=== PATIENT | female | born 1995 | race African-American/Black ===

== ENCOUNTER 2024-10-01 16:45 | Inpatient (IN) | payer MEDICAID, OTHER ==
[~2024-10-01] VITALS: Ht 177.8 cm; Wt 68.2 kg
[2024-10-01 17:00] VITALS: PULSE 80; RESP 15; O2SAT 97
[2024-10-01 19:38] LABS: Chloride 107 mmol/L (98-107); Potassium 4.1 mmol/L (3.5-5.1); Sodium 139 mmol/L (136-145)
[2024-10-01 19:39] LABS: Anion Gap 13 (5-15)
[2024-10-01 19:44] LABS: BUN/Creatinine Ratio 10.4 (10.0-20.0); Glucose 89 mg/dL (74-106)
[2024-10-01 19:51] LABS: Blood Urea Nitrogen 8 mg/dL (9-23); Carbon Dioxide 19 mmol/L (20-31)
[2024-10-01 19:53] LABS: Basophils # (auto) 0 10 ^3/uL (0-0.2); Basophils % (auto) 0.4 % (0.0-2.0); Eosinophils # (auto) 0 10 ^3/uL (0-0.8); Eosinophils % (auto) 0.1 % (0.0-7.0); Hematocrit 36.8 % (36.0-46.0); Hemoglobin 12.3 g/dL (12.2-16.2); Lymphocytes # (auto) 0.7 10 ^3/uL (0.4-5.4); Lymphocytes % (auto) 7.9 % (10.0-50.0); Mean Corpuscular Hemoglobin 33.2 pg (28.0-32.0); Mean Corpuscular Hgb Conc. 33.4 g/dL (32.0-36.0); Mean Corpuscular Volume 99.4 fL (80.0-100.0); Monocytes # (auto) 0.5 10 ^3/uL (0-1.3); Monocytes % (auto) 6.2 % (0.0-12.0); Neutrophils # (auto) 7.3 10 ^3/uL (1.6-8.6); Neutrophils % (auto) 85.4 % (37.0-80.0); Platelet Count (auto) 274 10^3/uL (140-450); Red Cell Distribution Width 13.4 % (11.8-14.3); White Blood Cell 8.5 10^3/uL (4.4-10.8)
--- NOTE | 2024-10-01 20:07 | ED.PDOC ---
History of Present Illness HPI Comments 29 year old female came to ER due to hypotension. Patient had a witnessed syncopal attack at home followed by a seizure like episode. No history of seizures. 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 Allergies: Coded Allergies: NO KNOWN ALLERGIES (Unverified , 10/01/24) Information Source: Patient, Emergency Med Personnel Mode of Arrival: EMS Severity: Moderate Timing: Minutes Duration: Minutes Prehospital treatment: None Past Medical History PAST MEDICAL HISTORY: Denies Surgical History: Denies all surgeries [employer] SECRETARY History: Denies all [employer]RO[employer] SECRETARY Hx Family History Family History: Reviewed,noncontributory to illness Social History Smoker: Non-Smoker Alcohol: Denies ETOH Use Drugs: Denies Drug Use Lives In: Home Constitutional: denies: chills, diaphoresis, fatigue, fever, malaise, sweats, weakness, others EENTM: denies: blurred vision, double vision, ear bleeding, ear discharge, ear drainage, ear pain, ear ringing, eye pain, eye redness, hearing loss, mouth pain, mouth swelling, nasal discharge, nose bleeding, nose congestion, nose pain, photophobia, tearing, throat pain, throat swelling, voice changes, others Respiratory: denies: cough, hemoptysis, orthopnea, SOB at rest, shortness of breath, SOB with excertion, stridor, wheezing, others Cardiovascular: denies: chest pain, dizzy spells, diaphoresis, Dyspnea on exertion, edema, irregular heart beat, left arm pain, lightheadedness, palpitations, PND, syncope, others Gastrointestinal: denies: abdomen distended, abdominal pain, blood streaked bowels, constipated, diarrhea, dysphagia, difficulty swallowing, hematemesis, melena, nausea, poor appetite, poor fluid intake, rectal bleeding, rectal pain, vomiting, others Genitourinary: denies: abnormal vagina bleeding, burning, dyspareunia, dysuria, flank pain, frequency, hematuria, incontinence, pain, , vagina discharge, urgency, others Neurological: reports: dizziness, fainting, seizure; denies: headache, left sided numbness, left sided weakness, numbness, paresthesia, pre-existing deficit, right sided numbness, right sided weakness, speech problems, tingling, tremors, weakness, others Musculoskeletal: denies: back pain, gout, joint pain, joint swelling, muscle pain, muscle stiffness, neck pain, others Integumetry: denies: bruises, change in color, change in hair/nails, dryness, laceration, lesions, lumps, rash, wounds, others Allergic/Immunocompromised: denies: Difficulty Healing, Frequent Infections, Hives, Itching, others Hematologic/Lymphatic: denies: anemia, blood clots, easy bleeding, easy bruising, swollen glands, others Endocrine: denies: excessive hunger, excessive sweating, excessive thirst, excessive urination, flushing, intolerance to cold, intolerance to heat, unexplained weight gain, unexplained weight loss, others Psychiatric: denies: anxiety, bipolar disorder, depression, hopeless, panic disorder, schizophrenia, sleepless, suicidal, others Physical Exam General Appearance: No Apparent Distress, Normal HEENT: Normal ENT Inspection, Pharynx Normal, TMs Normal Neck: Full Range of Motion, Non-Tender, Normal, Normal Inspection Respiratory: Chest Non-Tender, Lungs Clear, No Accessory Muscle Use, No Respiratory Distress, Normal Breath Sounds Cardiovascular: No Edema, No JVD, No Murmur, No Gallop, Normal Peripheral Pulses, Regular Rate/Rhythm Breast Exam: Deferred Gastrointestinal: No Organomegaly, Non Tender, No Pulsatile Mass, Normal Bowel Sounds, Soft Genitalia: Deferred Pelvic: Deferred Rectal: Deferred Extremities: No calf tenderness, Normal capillary refill, Normal inspection, Normal range of motion, Non-tender, No pedal edema Musculoskeletal : Apperance: Normal Neurologic: Alert, jewel inserter II-XII nml as Tested, No Motor Deficits, Normal Affect, Normal Mood, No Sensory Deficits Cerebellar Function: Normal Reflexes: Normal Skin: Dry, Normal Color, Warm Lymphatic: No Adenopathy Was a procedure done? Was a procedure done?: No Differential Dx Considerations may include: anemia, electrolyte imbalance, syncope. seizure, hypotension X-Ray, Labs, Meds, VS Vital Signs Date Time Temp Pulse Resp B/P (MAP) Pulse Ox O2 Delivery O2 Flow Rate FiO2 10/01/24 23:01 104 13 100 Room Air* 0 21 10/01/24 23:00 98.4 98 18 119/68 (85) 100 98.4 10/01/24 20:00 98.2 99 26 120/82 (95) 98 98.2 10/01/24 18:30 85 17 103/69 (80) 96 10/01/24 17:00 80 15 97 Room Air* 0 21 10/01/24 17:00 97.9 80 15 95/59 (71) 97 97.9 10/01/24 16:45 98.1 84 20 76/45 (55) 97 Lab Test 10/01/24 19:32 10/01/24 18:48 10/01/24 18:30 Range/Units White Blood Count 8.5 4.4-10.8 10^3/uL Red Blood Count 3.70 L 4.0-5.20 10^6/uL Hemoglobin 12.3 12.2-16.2 g/dL Hematocrit 36.8 36.0-46.0 % Mean Corpuscular Volume 99.4 80.0-100.0 fL Mean Corpuscular Hemoglobin 33.2 H 28.0-32.0 pg Mean Corpuscular Hemoglobin Concent 33.4 32.0-36.0 g/dL Red Cell Distribution Width 13.4 11.8-14.3 % Platelet Count 274 140-450 10^3/uL Mean Platelet Volume 7.1 6.9-10.8 fL Neutrophils (%) (Auto) 85.4 H 37.0-80.0 % Lymphocytes (%) (Auto) 7.9 L 10.0-50.0 % Monocytes (%) (Auto) 6.2 0.0-12.0 % Eosinophils (%) (Auto) 0.1 0.0-7.0 % Basophils (%) (Auto) 0.4 0.0-2.0 % Neutrophils # (Auto) 7.3 1.6-8.6 10 ^3/uL Lymphocytes # (Auto) 0.7 0.4-5.4 10 ^3/uL Monocytes # (Auto) 0.5 0-1.3 10 ^3/uL Eosinophils # (Auto) 0 0-0.8 10 ^3/uL Basophils # (Auto) 0 0-0.2 10 ^3/uL Nucleated Red Blood Cells 0.0 % Sodium Level 139 136-145 mmol/L Potassium Level 4.1 3.5-5.1 mmol/L Chloride Level 107 98-107 mmol/L Carbon Dioxide Level 19 L 20-31 mmol/L Anion Gap 13 5-15 Blood Urea Nitrogen 8 L 9-23 mg/dL Creatinine 0.77 0.550-1.02 mg/dL Glomerular Filtration Rate Calc 107 >90 mL/min BUN/Creatinine Ratio 10.4 10.0-20.0 Serum Glucose 89 74-106 mg/dL Calcium Level 9.0 8.7-10.4 mg/dL Urine Color Yellow Yellow Urine Clarity Turbid H Clear Urine pH 6.0 5.0-9.0 Urine Specific [place] 1.022 1.001-1.035 Urine Protein 1+ H Negative Urine Ketones 1+ H Negative Urine Blood Trace H Negative /uL Urine Nitrite Negative Negative Urine Bilirubin Negative Negative Urine Urobilinogen Normal Negative mg/dL Urine Leukocyte Esterase Negative Negative /uL Urine RBC 2 0 - 4 /hpf Urine WBC 4 0 - 5 /hpf Urine Squamous Epithelial Cells Mod <5 /hpf Urine Bacteria Few H None Seen /hpf Urine Hyaline Casts Few 0 - 2 /lpf Urine Mucus Few None Seen Urine Glucose Normal Normal mg/dL Urine Test Negative Negative Current Medications Medications (Trade) Dose Ordered Sig/Conner Route Start Time Stop Time Status Last Admin Levetiracetam 200 ml @ 400 mls/hr ONCE ONCE IV 10/01/24 21:00 10/01/24 21:29 DC 10/01/24 21:15 Sodium Chloride 1,000 ml @ 1,000 mls/hr Q1H ONCE IV 10/01/24 21:00 10/01/24 21:59 DC 10/01/24 21:00 Lorazepam (Ativan Inj) 2 mg ONCE ONCE IM 10/01/24 21:45 10/01/24 21:46 DC 10/01/24 22:02 Time of 1ST Reevaluation: 20:04 Reevaluation 1ST: Unchanged Patient Education/Counseling: Diagnosis, Treatment Family Education/Counseling: No Family Present Departure 1 Departure Time of Disposition: 23:31 (Patient has new onset seizures. Then we will admit patient for further workup.) Impression: Primary Impression: Seizure Disposition: ADMITTED INPATIENT Admit to: Med Surg Condition: Serious Critical Care Note Critical Care Time?: Yes Critical care comment: Seizures Authorized and Performed by: Chyna Arteaga MD Total critical care time: Approximately 39 minutes Due to a high probability of clinically significant, life threatening deterioration, the patient required my highest level of preparedness to intervene emergently and I personally spent this critical care time directly and personally managing the patient. This critical care time included obtaining a history; examining the patient; pulse oximetry; ordering and review of studies; arranging urgent treatment with development of a management plan; evaluation of patient's response to treatment; frequent reassessment; and, discussions with other providers. This critical care time was performed to assess and manage the high probability of imminent, life-threatening deterioration that could result in multi-organ failure. It was exclusive of separately billable procedures and treating other patients and teaching time. Please see my other sections and the rest of the note for further information on patient assessment and treatment. Stability Stability form required: No Heart Score Heart Score: Heart Score Response (Comments) Value History N/A 0 EKG N/A 0 Age N/A 0 Risk Factors N/A 0 Troponin N/A 0 Total 0 I personally scribed for CHYNA ARTEAGA MD ([email or web address]) on 10/01/24 at 20:07. Electronically submitted by Lawrence Fuller ([facility]). CHYNA ARTEAGA MD Oct 01, 2024 20:07
[2024-10-01] MEDS: LORazepam 2MG/ML-1ML VIAL ONE (21:00)
[2024-10-01] MEDS: SODIUM CHLORIDE 0.9% 1,000 ML IV ONE (21:00)
[2024-10-01 21:13] LABS: Urine Bacteria FEW /hpf (None Seen); Urine Blood TRACE /uL (Negative); Urine Clarity Turbid (Clear); Urine Color Yellow (Yellow); Urine Hyaline Cast FEW /lpf (0 - 2); Urine Mucus FEW (None Seen); Urine Protein, UAD 1+ (Negative); Urine Specific Gravity 1.022 (1.001-1.035); Urine Squamous Epithelial Cell MOD /hpf (<5); Urine Urobilinogen Normal (Negative); Urine WBC 4 /hpf (0 - 5)
[2024-10-01] MEDS: levETIRAcetam 1000 mg/100ml 200 ML IV ONE (21:15)
[2024-10-01] MEDS: levETIRAcetam 1000 mg/100ml 100 ML IV ONE (21:32)
--- NOTE | 2024-10-01 21:35 | DVH ---
EXAM: XY CHEST XRAY 1 VIEW CLINICAL HISTORY: possible aspiration TECHNIQUE: Single AP view of the chest WID: COMPARISON: None FINDINGS: Lines and tubes: None Chest: The heart size and pulmonary vasculature is within normal limits. No pleural effusion or pneumothorax. Suggestion of mild patchy perihilar opacities. The osseous structures are grossly intact. IMPRESSION: Suggestion of mild patchy perihilar opacities which may be superimposed soft tissues, atelectasis, or pneumonia
--- NOTE | 2024-10-01 22:00 | DVH ---
EXAM: CT HEAD WITHOUT CONTRAST INDICATION: New onset seizure TECHNIQUE: CT of the head without intravenous contrast. Radiation Dose : 1. Head: CT Dose: CTDI volume is 61 mGy. Dose-length product is 1077 mGy*cm The dose indicators for CT are the volume Computed Tomography (CT) Dose Index (CTDIvol) and the Dose Length Product (DLP), and are measured in units of mGy and mGy-cm, respectively. These indicators are not patient dose, but values generated from the CT scanner acquisition factors. The report includes radiation exposure data for exposures received during this examination. COMPARISON: None FINDINGS: There is no evidence of acute intracranial hemorrhage, extra-axial collection, mass effect, midline s hift, herniation or hydrocephalus. The ventricles, sulci and cisterns are age appropriate. The sumner-white differentiation is intact. Patchy periventricular and subcortical white matter hypoattenuation is nonspecific but may be related to small vessel ischemic disease. The visualized paranasal sinuses and mastoid air cells are clear. The surrounding soft tissues and osseous structures are unremarkable. IMPRESSION: 1. No acute intracranial abnormality. Radiation optimization: All CT scans at this facility use at least one of these dose optimization ivet hniques: automated exposure control mA and/or kV adjustment per patient size (includes targeted exam s where dose is matched to clinical indication) or iterative reconstruction.
[2024-10-01] MEDS: LORazepam 2MG/ML-1ML VIAL IM ONE (22:02)
[2024-10-01 23:01] VITALS: PULSE 104; RESP 13; O2SAT 100
[2024-10-02] MEDS ORDERED: ACETAMINOPHEN 325 MG TAB PO PRN (00:30)
[2024-10-02] MEDS ORDERED: DOCUSATE SOD 100 MG CAP PO PRN (00:30)
[2024-10-02] MEDS: SODIUM CHLORIDE 0.9% 1,000 ML IV SCH (00:30)
[2024-10-02] MEDS ORDERED: HYDROcodone-ACET 5/325MG TAB PO PRN (00:30)
[2024-10-02] MEDS ORDERED: LORazepam 2MG/ML-1ML VIAL IV PRN (00:30)
[2024-10-02] MEDS ORDERED: ONDANSETRON HCL 4 MG/2 ML VIAL IV PRN (00:30)
[2024-10-02] MEDS: CEFEPIME 2GM/50ML NS 50 ML IV ONE (00:45)
--- NOTE | 2024-10-02 00:55 | DVHHP2 ---
History of Present Illness Reason for Visit: Seizure disorder History of Present Illness The patient is a 29-year-old female with past medical history of seizure presented to [facility] ED for evaluation of hypotension. Patient had a witnessed syncopal attack at home followed by a seizure like episode lasting for 45 seconds, reports history of seizures. Patient was noted to have blood sugar of 139, hypotensive at 76/45 mmHg trending up to 119/68, heart rate 98, temperature 98.4 F, O2 saturation 99% room air. Laboratory data shows WBC 8.5, platelets 274, sodium 139, potassium 4.1, BUN 8, creatinine 0.77, GFR 107, glucose 89. Head CT showed no acute intracranial abnormality. Chest x-ray sugges tion of mild patchy perihilar opacity which may be superimposed soft tissues, atelectasis, or pneumonia..Patient was started IV antibiotic regimen cefepime, please see medication orders section in the computer. On my assessment, patient denied chest pain, no headache, no dizziness, no shortness of breath, no nausea, no vomiting, no fever, no chills. Patient was admitted for further evaluation and medical management. Past Medical History Seizure Past Surgical History Denies all surgeries Family History Reviewed, noncontributory to the management of this case. Past Social History The patient lives at home, denies smoking, alcohol or illicit drugs abuse. Review of Systems Constitutional: No: Fever, Chills, Sweats, Weakness, Malaise, Other Eyes: No: Pain, Vision change, Conjunctivae inflammation, Eyelid inflammation, Other, Redness ENT: No: Ear pain, Ear discharge, Nose pain, Nose discharge, Nose congestion, Mouth pain, Mouth swelling, Throat pain, Throat swelling, Other Respiratory: No: Cough, Dry, Shortness of breath, SOB with excertion, Wheezing, Hemoptysis, Pleuritic Pain, Sputum, Wheezing, Other Cardiovascular: No: Chest Pain, Palpitations, Orthopnea, Paroxysmal Noc. Dyspnea, Edema, Lt Headedness, Other Gastrointestinal: No: Nausea, Vomiting, Abdominal Pain, Diarrhea, Constipation, Melena, Hematochezia, Other Genitourinary: No Dysuria, No Frequency, No Incontinence, No Hematuria, No Retention, No Other Musculoskeletal: No: other, neck pain, shoulder pain, arm pain, back pain, hand pain, leg pain, foot pain Skin: No: Rash, Lesions, Jaundice, Bruising, Other Neurological: Seizures, Other (dizziness, fainting.); No: Weakness, Numbness, Incoordination, Change in speech, Confusion Allergies: Coded Allergies: NO KNOWN ALLERGIES (Unverified , 10/01/24) Medications Current Medications Medications Dose Ordered Sig/Conner Route Start Time Stop Time Status Last Admin Dose Admin Levetiracetam 100 ml @ 400 mls/hr BID IV 10/02/24 10:00 Lorazepam 1 mg Q2HP PRN IV 10/02/24 00:30 Sodium Chloride 1,000 ml @ 60 mls/hr [id number] IV 10/02/24 00:30 Acetaminophen/ Hydrocodone Bitart 1 tab Q4HP PRN PO 10/02/24 00:30 Ondansetron HCl 4 mg Q4HP PRN IV 10/02/24 00:30 Docusate Sodium 100 mg BIDPRN PRN PO 10/02/24 00:30 Acetaminophen 650 mg Q6HP PRN PO 10/02/24 00:30 Exam Vital Signs Vital Signs Date Time Temp Pulse Resp B/P (MAP) Pulse Ox O2 Delivery O2 Flow Rate FiO2 10/01/24 23:01 104 13 100 Room Air* 0 21 10/01/24 23:00 98.4 119/68 (85) 98.4 General Appearance: Alert, Oriented X3, Cooperative, No acute distress HEENT: Atraumatic, PERRLA, EOMI, Mucous membr. moist/pink Respiratory: Normal air movement, Other (Diminished breath sounds) Cardiovascular: Regular rate, Normal S1, Normal S2, No murmurs Abdominal: Normal bowel sounds, Soft, No tenderness, No hepatospenomegaly, No masses Extremities: No clubbing, No cyanosis, No edema, Normal pulses, No tenderness/swelling Skin: No rashes, No breakdown, No significant lesion Neuro: Normal speech, Normal tone, Sensation intact, Cranial nerves 3-12 NL, Reflexes 2+, Other (Generalized weakness) Psych/Mental Status: Mental status NL, Mood NL Labs/Xrays Labs Test 10/01/24 19:32 10/01/24 18:48 10/01/24 18:30 Range/Units White Blood Count 8.5 4.4-10.8 10^3/uL Red Blood Count 3.70 L 4.0-5.20 10^6/uL Hemoglobin 12.3 12.2-16.2 g/dL Hematocrit 36.8 36.0-46.0 % Mean Corpuscular Volume 99.4 80.0-100.0 fL Mean Corpuscular Hemoglobin 33.2 H 28.0-32.0 pg Mean Corpuscular Hemoglobin Concent 33.4 32.0-36.0 g/dL Red Cell Distribution Width 13.4 11.8-14.3 % Platelet Count 274 140-450 10^3/uL Mean Platelet Volume 7.1 6.9-10.8 fL Neutrophils (%) (Auto) 85.4 H 37.0-80.0 % Lymphocytes (%) (Auto) 7.9 L 10.0-50.0 % Monocytes (%) (Auto) 6.2 0.0-12.0 % Eosinophils (%) (Auto) 0.1 0.0-7.0 % Basophils (%) (Auto) 0.4 0.0-2.0 % Neutrophils # (Auto) 7.3 1.6-8.6 10 ^3/uL Lymphocytes # (Auto) 0.7 0.4-5.4 10 ^3/uL Monocytes # (Auto) 0.5 0-1.3 10 ^3/uL Eosinophils # (Auto) 0 0-0.8 10 ^3/uL Basophils # (Auto) 0 0-0.2 10 ^3/uL Nucleated Red Blood Cells 0.0 % Sodium Level 139 136-145 mmol/L Potassium Level 4.1 3.5-5.1 mmol/L Chloride Level 107 98-107 mmol/L Carbon Dioxide Level 19 L 20-31 mmol/L Anion Gap 13 5-15 Blood Urea Nitrogen 8 L 9-23 mg/dL Creatinine 0.77 0.550-1.02 mg/dL Glomerular Filtration Rate Calc 107 >90 mL/min BUN/Creatinine Ratio 10.4 10.0-20.0 Serum Glucose 89 74-106 mg/dL Calcium Level 9.0 8.7-10.4 mg/dL Urine Color Yellow Yellow Urine Clarity Turbid H Clear Urine pH 6.0 5.0-9.0 Urine Specific [place] 1.022 1.001-1.035 Urine Protein 1+ H Negative Urine Ketones 1+ H Negative Urine Blood Trace H Negative /uL Urine Nitrite Negative Negative Urine Bilirubin Negative Negative Urine Urobilinogen Normal Negative mg/dL Urine Leukocyte Esterase Negative Negative /uL Urine RBC 2 0 - 4 /hpf Urine WBC 4 0 - 5 /hpf Urine Squamous Epithelial Cells Mod <5 /hpf Urine Bacteria Few H None Seen /hpf Urine Hyaline Casts Few 0 - 2 /lpf Urine Mucus Few None Seen Urine Glucose Normal Normal mg/dL Urine Test Negative Negative PATIENT: JAVIER BUTT ACCT: [id number] UNIT: [id number] : 1995 LOC: ER ROOM / BED: / AGE / SEX: 29 / F ADM STATUS: REG ER SERVICE 56 ORDERING PHYSICIAN: CHYNA BOYLE MD PROCEDURE(s): HWOCT - HEAD WITHOUT CONTRAST REASON: New onset seizure ORDER NUMBER(s): [id number], ACCESSION NUMBER(s): [id number] EXAM: CT HEAD WITHOUT CONTRAST INDICATION: New onset seizure TECHNIQUE: CT of the head without intravenous contrast. Radiation Dose: 1. Head: CT Dose: CTDI volume is 61 mGy. Dose-length product is 1077 mGy*cm The dose indicators for CT are the volume Computed Tomography (CT) Dose Index (CTDIvol) and the Dose Length Product (DLP), and are measured in units of mGy and mGy-cm, respectively. These indicators are not patient dose, but values generated from the CT scanner acquisition factors. The report includes radiation exposure data for exposures received during this examination. COMPARISON: None FINDINGS: There is no evidence of acute intracranial hemorrhage, extra-axial collection, mass effect, midline shift, herniation or hydrocephalus. The ventricles, sulci and cisterns are age appropriate. The sumner-white differentiation is intact. Patchy periventricular and subcortical white matter hypoattenuation is nonspecific but may be related to small vessel ischemic disease. The visualized paranasal sinuses and mastoid air cells are clear. The surrounding soft tissues and osseous structures are unremarkable. IMPRESSION: 1. No acute intracranial abnormality. ORDERING PHYSICIAN: CHYNA BOYLE MD PROCEDURE(s): CXR1 - CHEST XRAY 1 VIEW REASON: possible aspiration ORDER NUMBER(s): [id number], ACCESSION NUMBER(s): [id number] EXAM: XY CHEST XRAY 1 VIEW CLINICAL HISTORY: possible aspiration TECHNIQUE: Single AP view of the chest WID: COMPARISON: None FINDINGS: Lines and tubes: None Chest: The heart size and pulmonary vasculature is within normal limits. No pleural effusion or pneumothorax. Suggestion of mild patchy perihilar opacities. The osseous structures are grossly intact. IMPRESSION: Suggestion of mild patchy perihilar opacities which may be superimposed soft tissues, atelectasis, or pneumonia Assessment/Plan Assessment/Plan Seizure disorder Generalized weakness Pneumonia, unspecified organism Plan 1. Admit to telemetry unit 2. Breathing treatment 3. Pain control management 4. Management of fluids and electrolytes 5. Consultation for Neurology 6. Diagnostic tests chest x-ray 7. DVT prophylaxis on SCDs 8. Repeat labs CBC, CMP in a.m. 9. Continue with current medical management 10. Treatment plan discussed with patient and RN. Patient verbalized understanding. Plan discussed with: Patient, Other (RN) My Orders Orders - EMMANUELLE MALLOY DNP Procedure Category Date Status Time Levetiracetam 500 PHA 10/02/24 In Process Mg/100ml (Levetiraceta 10:00 Lorazepam 2mg/Ml Inj PHA 10/02/24 In Process (Ativan Inj) 00:30 * Neurology Consult CONS 10/02/24 Transmitted 00:16 Allergies MANDIE 10/02/24 In Process 00:16 Code Status CODE 10/02/24 Transmitted 00:16 Sodium Chloride 0.9% PHA 10/02/24 In Process 00:30 Oxygen Per Hour RT 10/02/24 Transmitted 00:16 Hydrocodone-Acet PHA 10/02/24 In Process 5/325mg Tab ([place] 00:30 Ondansetron Hcl PHA 10/02/24 In Process (Zofran) 00:30 Docusate Sodium PHA 10/02/24 In Process Capsule (Colace 00:30 Fall Risk Precautions MANDIE 10/02/[address] 00:16 Complete Blood Count LAB 10/03/24 Verified 04:00 Comprehensive LAB 10/03/24 Verified Metabolic Panel 04:00 Cardiac DIET 10/02/24 Transmitted Diet-2gna,Lofat,Lochol Breakfast Condition: Serious MANDIE 10/02/24 In Process 00:16 Acetaminophen Tablet PHA 10/02/24 In Process (Tylenol Tablet) 00:30 Sequential MANDIE 10/02/24 In Process Compression Device Cefepime 1 Gm PHA 10/02/24 Verified 10:00 Admit ADMIT 10/02/24 Verified 00:52 Nitroglycerin [facility] 10/02/24 Verified Sublingual (Ntrostat 01:00 Morphine Sulfate [facility] 10/02/24 Verified Injection 01:00 Notify Of Changes [facility] 10/02/24 Verified From Base 00:52 Weed Inspector For [facility] 10/02/24 Verified 24 Hours 00:52 Emergency Dysrhythmia [facility] 10/02/24 Verified Protocol 00:52 Rhythm Strips Once [facility] 10/02/24 Verified Every Shift 00:52 Oxygen By Nasal RT 10/02/24 Verified Cannula 00:52 Problem List: (1) Seizure disorder (2) Generalized weakness (3) Pneumonia, unspecified organism Date of Service: Oct 02, 2024 Billing Provider: EMMANUELLE MALLOY DNP Common Visit Codes: 82309-[id number] INP/OBS CARE (HIGH) EMMANUELLE MALLOY DNP Oct 02, 2024 00:55
[2024-10-02] MEDS ORDERED: MORPHINE SULFATE INJ 2 MG/ml SYRG IV PRN (01:00)
[2024-10-02] MEDS ORDERED: NITROGLYCERIN 0.4 MG SL TAB SL PRN (01:00)
[2024-10-02] MEDS: VANCOMYCIN 1GM/250ML KIT 200 ML IV ONE (01:40)
[2024-10-02] MEDS: AZITHROMYCIN 250 MG TAB PO ONE (02:04)
[2024-10-02 06:50] VITALS: TEMP 97.8
[2024-10-02 09:30] VITALS: PULSE 97; RESP 17; O2SAT 95
[2024-10-02] MEDS: levETIRAcetam 500 mg/100ml 100 ML IV SCH (10:39)
[2024-10-02] MEDS: CEFEPIME 1GM/ 50ML 50 ML IV SCH (11:06)
[2024-10-02 18:00] VITALS: BP 125/78; PULSE 90; O2SAT 98
--- NOTE | 2024-10-02 19:34 | DVHINCON2 ---
Date of Consultation Date Date: 10/02/24 History of Present Illness History of Present Illness [place] Neuro Note # Demographics Consult Type: General Neurology Patient Location: Emergency Room First Name: JAVIER Last Name: FILOMENA Date of : 1995 Age: 29 Gender: Female Facility: [facility] Time of Initial Page (): 10/02/2024, 18:14 Time of Return Call (): 10/02/2024, 18:15 # HPI History: 45yof who presents yesterday evening for concern for seizure. Had a blank stare on her face, collapsed on the ground, and started shaking. Had another episode while she was in the hospital. Had a similar episode 1.5 years ago and was told this was related to stress and caffeine use. She said she was previously drinking significant amounts of alcohol and then stopped prior to this episode. # Scores Time of exam and NIHSS (): 10/02/2024, 19:22 Level of Consciousness 1a: [0] = Alert; keenly responsive LOC Questions 1b: [0] = Answers both questions correctly LOC Commands 1c: [0] = Performs both tasks correctly Best Gaze 2: [0] = Normal Visual 3: [0] = No visual loss Facial Palsy 4: [0] = Normal symmetrical movements Motor Arm Left 5a: [0] = No drift Motor Arm Right 5b: [0] = No drift Motor Leg Left 6a: [0] = No drift Motor Leg Right 6b: [0] = No drift Limb Ataxia 7: [0] = Absent Sensory 8: [0] = Normal Best Language 9: [0] = No aphasia Dysarthria 10: [0] = Normal Extinction and Inattention 11: [0] = No abnormality NIHSS Total: 0 # Assessment Impression: Possible alcohol withdrawal seizure? Recommend following workup, if this is related to alcohol withdrawal would not need AEDs in this scenario # Plan Imaging: (urgency: routine): - MRI Brain with AND without contrast Diagnostic Test: - EEG Other: - If patient has any neurological deterioration please call me back immediately - seizure precautions # Logistics Attestation of consult completion: The patient is located at: [facility]. Facility staff participated in the visit. I performed this telemedicine visit from my offsite office utilizing interactive 2 way audio and visual telecommunication technology. Total time spent in telemedicine encounter: I spent 25 minutes reviewing clinical data and/or imaging, obtaining history, examining the patient, communicating with the onsite care team, and in preparation of this report. # Demographics First Name: JAVIER Last Name: FILOMENA Facility: [facility] Allergies: Coded Allergies: NO KNOWN ALLERGIES (Unverified , 10/01/24) Current Medications Current Medications Medications (Trade) Dose Ordered Sig/Conner Route PRN Reason Start Time Stop Time Status Last Admin Levetiracetam 100 ml @ 400 mls/hr BID IV 10/02/24 10:00 10/02/24 10:39 Lorazepam (Ativan Inj) 1 mg Q2HP PRN IV SEIZURES 10/02/24 00:30 Sodium Chloride 1,000 ml @ 60 mls/hr [id number] IV 10/02/24 00:30 10/02/24 00:30 Acetaminophen/ Hydrocodone Bitart ([place] 5/325MG Tab) 1 tab Q4HP PRN PO MODERATE PAIN (4-6 PAIN SCALE) 10/02/24 00:30 Ondansetron HCl (Zofran) 4 mg Q4HP PRN IV NAUSEA / VOMITING 10/02/24 00:30 Docusate Sodium (Colace Capsule) 100 mg BIDPRN PRN PO FOR CONSTIPATION 10/02/24 00:30 Acetaminophen (Tylenol Tablet) 650 mg Q6HP PRN PO PAIN SCALE 1-3 OR TEMP>100.4 10/02/24 00:30 Cefepime HCl 50 ml @ 12.5 mls/hr Q12HR IV 10/02/24 10:00 10/02/24 11:06 Nitroglycerin (Ntrostat Sublingual) 0.4 mg Q5MINP PRN SL FOR CHEST PAIN 10/02/24 01:00 Morphine Sulfate 2 mg Q30M PRN IV FOR CHEST PAIN 10/02/24 01:00 Physical Examination General Examination: Last Vital sign Vital Signs Date Time Temp Pulse Resp B/P (MAP) Pulse Ox O2 Delivery O2 Flow Rate FiO2 10/02/24 18:00 90 16 125/78 (94) 98 10/02/24 09:30 Room Air* 0 21 10/02/24 06:50 97.8 97.8 General: General: No apparent distress, appears comfortable. Cooperative. Neurological Examination: Neurological Examination: Mental Status: Cranial Nerves: Motor Examination: Reflexes: Sensory: Coordination: Gait: Labs: Labs: Laboratory Tests Test 10/01/24 18:30 10/01/24 18:48 10/01/24 19:32 Range/Units Urine Color Yellow Yellow Urine Clarity Turbid H Clear Urine pH 6.0 5.0-9.0 Urine Specific [place] 1.022 1.001-1.035 Urine Protein 1+ H Negative Urine Ketones 1+ H Negative Urine Blood Trace H Negative /uL Urine Nitrite Negative Negative Urine Bilirubin Negative Negative Urine Urobilinogen Normal Negative mg/dL Urine Leukocyte Esterase Negative Negative /uL Urine RBC 2 0 - 4 /hpf Urine WBC 4 0 - 5 /hpf Urine Squamous Epithelial Cells Mod <5 /hpf Urine Bacteria Few H None Seen /hpf Urine Hyaline Casts Few 0 - 2 /lpf Urine Mucus Few None Seen Urine Glucose Normal Normal mg/dL Urine Test Negative Negative Sodium Level 139 136-145 mmol/L Potassium Level 4.1 3.5-5.1 mmol/L Chloride Level 107 98-107 mmol/L Carbon Dioxide Level 19 L 20-31 mmol/L Anion Gap 13 5-15 Blood Urea Nitrogen 8 L 9-23 mg/dL Creatinine 0.77 0.550-1.02 mg/dL Glomerular Filtration Rate Calc 107 >90 mL/min BUN/Creatinine Ratio 10.4 10.0-20.0 Serum Glucose 89 74-106 mg/dL Calcium Level 9.0 8.7-10.4 mg/dL White Blood Count 8.5 4.4-10.8 10^3/uL Red Blood Count 3.70 L 4.0-5.20 10^6/uL Hemoglobin 12.3 12.2-16.2 g/dL Hematocrit 36.8 36.0-46.0 % Mean Corpuscular Volume 99.4 80.0-100.0 fL Mean Corpuscular Hemoglobin 33.2 H 28.0-32.0 pg Mean Corpuscular Hemoglobin Concent 33.4 32.0-36.0 g/dL Red Cell Distribution Width 13.4 11.8-14.3 % Platelet Count 274 140-450 10^3/uL Mean Platelet Volume 7.1 6.9-10.8 fL Neutrophils (%) (Auto) 85.4 H 37.0-80.0 % Lymphocytes (%) (Auto) 7.9 L 10.0-50.0 % Monocytes (%) (Auto) 6.2 0.0-12.0 % Eosinophils (%) (Auto) 0.1 0.0-7.0 % Basophils (%) (Auto) 0.4 0.0-2.0 % Neutrophils # (Auto) 7.3 1.6-8.6 10 ^3/uL Lymphocytes # (Auto) 0.7 0.4-5.4 10 ^3/uL Monocytes # (Auto) 0.5 0-1.3 10 ^3/uL Eosinophils # (Auto) 0 0-0.8 10 ^3/uL Basophils # (Auto) 0 0-0.2 10 ^3/uL Nucleated Red Blood Cells 0.0 % Assessment/Plan Assessment/Plan Assessment and Plan:Javier Banks is a 29 year old female who presents with Plan discussed with: Patient DAISY YOUNG MD Oct 02, 2024 19:34
[2024-10-02 19:45] VITALS: RESP 16
== END 2024-10-02 20:08 | disposition left against medical advice (07) | DRG 53 ==
LOC: EDBD 16:45 → ER 16:45 → TELE 10-02 00:52
PROVIDERS: ADMIT Nurse Practitioner Family; ATTEND Nurse Practitioner Family
DX: G40.909 Epilepsy, unspecified, not intractable, without status epilepticus (principal); J18.9 Pneumonia, unspecified organism; I95.9 Hypotension, unspecified; Z53.29 Procedure and treatment not carried out because of patient's decision for other reasons; Z79.899 Other long term (current) drug therapy
CPT/HCPCS: 36415; 70450; 71045; 80048; 81001; 81025; 99291; G0378; J0692